=== PATIENT | female | born 1950 | race Caucasian/White ===

== ENCOUNTER 2016-12-12 17:45 | Emergency (ER) | payer OTHER, MEDICARE ==
[~2016-12-12] VITALS: Ht 170.2 cm; Wt 105.7 kg
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
[~2016-12-12 17:45] MED LIST: ADVAIR 250-501 EACH; ADVAIR 2501 DISK W/D PO; ADVAIR 5001 DISK W/D PO; ALPRAZOLAM ER1 MG PO; ALPRAZOLAM PO; ALPRAZOLAM1 MG PO; AMLODIPINE BESY10 MG PO; ATROVENT; ATROVENT NEB; AZITHROMYCIN250 MG PO; BUDESONIDE0.5 MG/2 M IH; CARDURA8 MG PO; CRESTOR PO; CRESTOR5 MG PO; DOXYCYCLINE HY100 M3 PO; FISH OIL300 MG PO; FLEXERIL10 M1 PO; FLEXERIL10 MG PO; FLUVIRIN; GABAPENTIN300 M2 PO; HYDROCODON-ACE1 EAC5 PO; LEVAQUIN PO; LEVAQUIN750 MG; LISINOPRIL5 MG PO; LORCET 10-6501 EACH PO; LORTAB 10/500 T1 TAB PO; LYRICA75 MG PO; MONTELUKAST SOD10 MG PO; MORPHINE SULFAT15 M3 PO; NEURONTIN PO; NEURONTIN300 MG PO; NORCO 5/325 TAB1 TAB PO; NORVASC PO; OMNICEF PO; PERFOROMIS20 MCG/2 M IH; PREDNISONE PO; PREDNISONE10 MG PO; PULMICORT0.5 MG/2 M IH; SINGULAIR PO; SPIRIVA18 MCG INH; SULAR PO; TOPAMAX PO; VITAMIN D 22000 UNIT PO; VITAMIN D50000 UNIT; XANAX1 MG PO; XOPENEX HFA15 GM; XOPENEX HFA15 GM NEB; XOPENEX HFA15 GM PO; XOPENEX1.25 MG/0. NEB
== END 2016-12-12 21:25 | disposition home or self-care (01) ==
LOC: CFTX 17:45 → CED 17:45 → CFTX 18:24
DX: S09.90XA Unspecified injury of head, initial encounter (principal); S00.93XA Contusion of unspecified part of head, initial encounter; S60.222A Contusion of left hand, initial encounter; S60.221A Contusion of right hand, initial encounter; Z23 Encounter for immunization; V49.00XA Driver injured in collision with unspecified motor vehicles in nontraffic accident, initial encounter; J44.9 Chronic obstructive pulmonary disease, unspecified; I10 Essential (primary) hypertension; Y92.410 Unspecified street and highway as the place of occurrence of the external cause; Z88.8 Allergy status to other drugs, medicaments and biological substances
CPT/HCPCS: 70450; 73130; 90471; 90715; 99284